=== PATIENT | male | born 1955 | race African-American/Black ===

== ENCOUNTER 2018-01-04 11:28 | Inpatient (IN) | payer SELFPAY ==
[2018-01-04 12:03] LABS: ADD MAN DIFF? NO
[2018-01-04 12:18] LABS: BASO # 0.1 x10^3/uL (0.0-0.2); BASO % 2 % (0-3); EOS % 0 % (0-3); HEMATOCRIT 48.1 % (39.0-53.0); HEMOGLOBIN 16.4 g/dL (13.0-17.5); LYMPH # 3.9 x10^3/uL (1.0-4.8); LYMPH % 44 % (24-48); MEAN CORPUSCULAR HEMOGLOBIN 33 pg (25-35); MEAN CORPUSCULAR HGB CONC 34 g/dL (31-37); MEAN CORPUSCULAR VOLUME 96 fL (79-100); MONO # 0.9 x10^3/uL (0.0-1.1); MONO % 11 % (0-9); NEUT # 3.8 x10^3uL (1.8-7.7); NEUT % 43 % (31-73); PLATELET COUNT 225 x10^3/uL (140-400); RED BLOOD COUNT 4.99 x10^6/uL (4.30-5.70); RED CELL DISTRIBUTION WIDTH 14.8 % (11.5-14.5); WHITE BLOOD COUNT 8.8 x10^3/uL (4.0-11.0)
[2018-01-04 12:21] LABS: ANION GAP 4 (6-14); BLOOD UREA NITROGEN 13 mg/dL (8-26); CALCIUM 9.6 mg/dL (8.5-10.1); CARBON DIOXIDE 31 mmol/L (21-32); CHLORIDE 104 mmol/L (98-107); CREATININE 1.1 mg/dL (0.7-1.3); GFR 82.6; GLUCOSE 87 mg/dL (70-99); POTASSIUM 4.6 mmol/L (3.5-5.1); SODIUM 139 mmol/L (136-145)
[2018-01-04] MEDS: IPRATRPIUM/ALBUTEROL 0.5/2.5MG 3 ML NEBU. NEB ×2 (12:28→20:08)
[2018-01-04 12:30] LABS: TROPONINI 0.023 ng/mL (0.000-0.055)
[2018-01-04 12:33] LABS: NT-PRO BNP 426 pg/mL (0-124)
[2018-01-04 12:39] LABS: BASE EXCESS ABG 2 mmol/L (-3-3); HCO3 ABG 27 mmol/L (21-28); PCO2 ABG 41 mmHg (35-46); PH ABG 7.43 (7.35-7.45); PO2 ABG 60 mmHg (65-108); SAT O2 ABG 92 % (92-99)
[2018-01-04] MEDS: methylPREDNISolone SOD SUCC PF 125 MG/2 ML VIAL. IV (12:56)
[2018-01-04 13:04] LABS: FIO2 ABG 28
[2018-01-04] MEDS ORDERED: ALBUTEROL SULFATE 2.5 MG/3 ML NEBU. NEB (16:15)
[2018-01-04] MEDS ORDERED: traMADol 50 MG TABLET PO (16:15)
[2018-01-04] MEDS ORDERED: ACETAMINOPHEN 325 MG TABLET. PO (16:15)
[2018-01-04] MEDS: ENOXAPARIN 40 MG/0.4 ML SYRINGE. SQ (16:15)
[2018-01-04] MEDS ORDERED: ONDANSETRON PF 4 MG/2 ML VIAL. IV (16:15)
[2018-01-04] MEDS ORDERED: hydrALAZINE 20 MG/ML VIAL. IVP (16:15)
[2018-01-04] MEDS ORDERED: DOCUSATE SODIUM 100 MG CAPSULE. PO (16:15)
[2018-01-04] MEDS ORDERED: MORPHINE SULFATE 2 MG/ML DISP.SYRIN. IV (16:15)
[2018-01-04] MEDS: LISINOPRIL 20 MG TABLET PO (17:27)
[2018-01-04 19:33] LABS: TROPONINI 0.017 ng/mL (0.000-0.055)
[2018-01-04] MEDS: methylPREDNISolone SOD SUCC PF 40 MG/ML VIAL. IV (21:07)
[2018-01-04] MEDS: FAMOTIDINE 20 MG TABLET. PO (21:07)
[2018-01-05] MEDS: methylPREDNISolone SOD SUCC PF 40 MG/ML VIAL. IV (05:35)
[2018-01-05 05:42] LABS: ADD MAN DIFF? NO
[2018-01-05 05:51] LABS: BASO % 0 % (0-3); EOS % 0 % (0-3); HEMATOCRIT 44.7 % (39.0-53.0); HEMOGLOBIN 14.9 g/dL (13.0-17.5); LYMPH # 1.5 x10^3/uL (1.0-4.8); LYMPH % 12 % (24-48); MEAN CORPUSCULAR HEMOGLOBIN 32 pg (25-35); MEAN CORPUSCULAR HGB CONC 33 g/dL (31-37); MEAN CORPUSCULAR VOLUME 96 fL (79-100); MONO # 0.4 x10^3/uL (0.0-1.1); MONO % 3 % (0-9); NEUT # 10.6 x10^3uL (1.8-7.7); NEUT % 85 % (31-73); PLATELET COUNT 208 x10^3/uL (140-400); RED BLOOD COUNT 4.66 x10^6/uL (4.30-5.70); RED CELL DISTRIBUTION WIDTH 14.9 % (11.5-14.5); WHITE BLOOD COUNT 12.6 x10^3/uL (4.0-11.0)
[2018-01-05 06:00] LABS: ANION GAP 6 (6-14); BLOOD UREA NITROGEN 14 mg/dL (8-26); CALCIUM 8.9 mg/dL (8.5-10.1); CARBON DIOXIDE 27 mmol/L (21-32); CHLORIDE 104 mmol/L (98-107); GFR 92.2; GLUCOSE 182 mg/dL (70-99); POTASSIUM 4.2 mmol/L (3.5-5.1); SODIUM 137 mmol/L (136-145)
[2018-01-05] MEDS: LISINOPRIL 20 MG TABLET PO (08:46)
[2018-01-05] MEDS: IPRATRPIUM/ALBUTEROL 0.5/2.5MG 3 ML NEBU. NEB (09:03)
[2018-01-05] MEDS ORDERED: LACTOBACILLUS RHAMNOSUS GG 1 CAPSULE. PO (21:00)
== END 2018-01-05 12:30 | disposition home or self-care (01) | DRG 189 ==
LOC: ER 11:28 → 5 NORTH 13:09
DX: J96.01 Acute respiratory failure with hypoxia (principal); J44.1 Chronic obstructive pulmonary disease with (acute) exacerbation; F17.210 Nicotine dependence, cigarettes, uncomplicated; I10 Essential (primary) hypertension; I16.0 Hypertensive urgency; Z82.49 Family history of ischemic heart disease and other diseases of the circulatory system; Z91.14 Patient's other noncompliance with medication regimen
CPT/HCPCS: 36415; 36600; 71045; 80048; 82805; 83880; 84484; 85025; 93005; 93306; 94640; 96374; 99285; 99285-25; J1956; J2920; J2930; J7620